=== PATIENT | female | born 1975 | race Caucasian/White ===

== ENCOUNTER → 2021-04-20 | Outpatient (CLI) | payer OTHER | LOC: M.ULTRA 08:46 | PROVIDERS: ATTEND Family Medicine | DX: R10.84 Generalized abdominal pain (principal) ==

== ENCOUNTER → 2021-08-13 | Outpatient (CLI) | payer OTHER | LOC: M.NUC 06-19 07:45 | PROVIDERS: ATTEND Family Medicine | DX: R10.84 Generalized abdominal pain (principal) ==